=== PATIENT | female | born 1955 | race Caucasian/White ===

== ENCOUNTER 2018-01-01 16:40 | Outpatient (CLI) | payer OTHER, SELFPAY ==
[2018-01-01 17:14] LABS: Bilirubin Negative (Negative); Blood Small (Negative); Clarity Sl Cloudy; Glucose Negative (Negative); Ketones Negative (Negative); Leukocyte Esterase Large (Negative); Nitrite Negative (Negative); Specific Gravity <= 1.005 (1.005-1.025); Urobilinogen 0.2 EU/dL (Up TO 0.2); pH 5.5 (5-8)
[2018-01-01 17:28] LABS: Bacteria Many HPF (Negative); C & S Indicated? Yes; WBC >50 HPF (0-5)
== END 2018-01-01 16:41 ==
DX: R39.9 Unspecified symptoms and signs involving the genitourinary system (principal)
CPT/HCPCS: 87077; 81003; 81015; 87086; 87186

== ENCOUNTER 2018-03-03 20:21 | Outpatient (REF) | payer OTHER, SELFPAY | END 2018-03-03 20:41 | LOC: NCHCN 20:21 | PROVIDERS: Visit Provider Family Medicine | DX: R30.0 Dysuria (principal) | CPT/HCPCS: 87086 ==

== ENCOUNTER 2018-04-18 11:11 | Outpatient (REF) | payer OTHER, SELFPAY ==
[2018-04-18 13:06] LABS: Bilirubin Negative (Negative); Blood Negative (Negative); Clarity Clear; Glucose Negative (Negative); Ketones Negative (Negative); Leukocyte Esterase Negative (Negative); Nitrite Negative (Negative); Urobilinogen 0.2 EU/dL (Up TO 0.2)
== END 2018-04-18 11:31 ==
LOC: NCHCN 11:11
PROVIDERS: Visit Provider Nurse Practitioner Family
DX: R31.9 Hematuria, unspecified (principal)
CPT/HCPCS: 81003

== ENCOUNTER 2018-04-28 14:39 | Outpatient (REF) | payer OTHER, SELFPAY ==
[2018-04-28 15:28] LABS: Bacteria Negative HPF (Negative); C & S Indicated? No; Casts Negative LPF (Negative); Crystals Negative HPF (Negative); Epithelial Cells Negative HPF (Negative); Mucus Negative (Negative); Other Cells Negative (Negative); RBC 0-2 (0-2); WBC 0-2 HPF (0-5)
== END 2018-04-28 14:59 ==
LOC: LBN 14:39
PROVIDERS: Visit Provider Nurse Practitioner Gerontology
DX: R31.9 Hematuria, unspecified (principal)
CPT/HCPCS: 81015

== ENCOUNTER 2018-05-12 00:18 | Outpatient (CLI) | payer OTHER, SELFPAY ==
--- NOTE | 2018-05-12 07:45 | DI.US_ITS ---
SYMPTOM/DIAGNOSIS: PELVIC PAIN WITH BLOATING. R10.2, PERINEAL PAIN. H/O BREAST CA PELVIC ULTRASOUND: Transabdominal and transvaginal examination was performed. No priors for comparison. The uterus measures 5.3 cm long x 2.2 cm AP x 4.1 cm transverse. The endometrial stripe is within normal limits at 0.2 cm. No myometrial mass is present. The right ovary measures 1.5 x 0.8 x 1.2 cm and is grossly unremarkable. The left ovary was not visualized transabdominally or transvaginally. No left adnexal mass is seen. No free pelvic fluid or hydronephrosis is identified. IMPRESSION: Nonvisualization of the left ovary without evidence of a left adnexal lesion sonographically. 2. Negative pelvic ultrasound.
== END 2018-05-12 00:38 ==
PROVIDERS: PCP Internal Medicine; Visit Provider Nurse Practitioner Gerontology
DX: R10.2 Pelvic and perineal pain (principal); R14.0 Abdominal distension (gaseous); Z85.3 Personal history of malignant neoplasm of breast
CPT/HCPCS: 76830; 76856

== ENCOUNTER 2020-03-25 16:05 | Outpatient (REF) | payer BC, SELFPAY ==
[2020-03-25 16:47] LABS: Bacteria Negative HPF (Negative); C & S Indicated? C&S Done As Ordered; Casts Negative LPF (Negative); Crystals Negative HPF (Negative); Epithelial Cells Rare HPF (Negative); Mucus Negative (Negative); RBC 0-2 HPF (0-2); WBC 0-2 HPF (0-5)
== END 2020-03-25 16:25 ==
LOC: NCHCN 16:05
PROVIDERS: PCP Internal Medicine; Visit Provider Nurse Practitioner Adult Health
DX: Z87.440 Personal history of urinary (tract) infections (principal)
CPT/HCPCS: 81015; 87086

== ENCOUNTER 2020-10-31 18:32 | Outpatient (REF) | payer OTHER, SELFPAY | END 2020-10-31 18:33 | disposition home or self-care (01) | LOC: NCHCN 18:32 | PROVIDERS: PCP Internal Medicine; Visit Provider Internal Medicine | DX: N30.00 Acute cystitis without hematuria (principal) | CPT/HCPCS: 87077; 87086; 87186 ==

== ENCOUNTER 2021-11-29 02:54 | Outpatient (CLI) | payer OTHER, SELFPAY ==
[2021-11-30 10:14] LABS: Lyme Ab w Rflx to Lyme Confirm Negative (Negative)
[2021-12-01 16:18] LABS: Anaplasma phagocytophilum Negative (Negative); B. miyamotoi PCR Negative (Negative); Babesia divergens/MO-1 Negative (Negative); Babesia duncani Negative (Negative); Babesia microti Negative (Negative); Ehrlichia chaffeensis Negative (Negative); Ehrlichia ewingii/canis Negative (Negative); Ehrlichia muris eauclairensis Negative (Negative)
== END 2021-11-29 02:55 | disposition home or self-care (01) ==
LOC: LBO 02:54
PROVIDERS: PCP Internal Medicine; Visit Provider Family Medicine
DX: R53.81 Other malaise (principal)
CPT/HCPCS: 36415; 87798; 86618

== ENCOUNTER 2021-12-21 22:17 | Outpatient (REF) | payer OTHER, SELFPAY ==
[2021-12-21 22:11] LABS: Bilirubin Negative (Negative); Blood Moderate (Negative); Clarity Cloudy (Clear); Glucose Negative (Negative); Ketones Negative (Negative); Leukocyte Esterase Large (Negative); Nitrite Negative (Negative); Specific Gravity 1.025 (1.005-1.025); Urobilinogen 0.2 EU/dL (Up TO 0.2)
[2021-12-21 22:20] LABS: Bacteria Many HPF (Negative); C & S Indicated? C&S Done As Ordered; Crystals Negative HPF (Negative); Epithelial Cells Negative HPF (Negative); Mucus Negative (Negative); WBC >50 HPF (0-5)
== END 2021-12-21 22:18 | disposition home or self-care (01) ==
LOC: NCHCN 22:17
PROVIDERS: PCP Internal Medicine; Visit Provider Internal Medicine
DX: R30.0 Dysuria (principal)
CPT/HCPCS: 87077; 81003; 81015; 87086; 87186

== ENCOUNTER 2022-04-27 13:53 | Outpatient (REF) | payer OTHER, SELFPAY | END 2022-04-27 13:54 | disposition home or self-care (01) | LOC: LBN 13:53 | PROVIDERS: PCP Internal Medicine; Visit Provider Nurse Practitioner Family | DX: R30.0 Dysuria (principal) | CPT/HCPCS: 87077; 87086; 87186 ==

== ENCOUNTER 2022-05-02 16:00 | Outpatient (REF) | payer OTHER, BC, SELFPAY | END 2022-05-02 16:01 | disposition home or self-care (01) | LOC: LBN 16:00 | PROVIDERS: PCP Internal Medicine; Visit Provider Physician Assistant Medical | DX: R30.0 Dysuria (principal) | CPT/HCPCS: 87480; 87510; 87660 ==

== ENCOUNTER 2022-08-27 14:58 | Outpatient (REF) | payer BC, SELFPAY | END 2022-08-27 14:59 | disposition home or self-care (01) | LOC: NCHCN 14:58 | PROVIDERS: PCP Internal Medicine; Visit Provider Family Medicine | DX: R30.0 Dysuria (principal) | CPT/HCPCS: 87077; 87086; 87186 ==